=== PATIENT | female | born 1980 | race American Indian/Alaskan Native ===

== ENCOUNTER 2017-10-26 01:23 | Emergency (ER) | payer SELFPAY ==
[2017-10-26 01:36] VITALS: BMI 21.4
[2017-10-26 01:51] LABS: BASO # 0.1 K/uL (0.0-0.2); BASO % 1.2 % (0.0-2.0); EOS # 0.2 K/uL (0.0-0.7); HEMOGLOBIN 12.9 g/dL (12.0-16.0); LYMPH # 5.4 K/uL (1.0-4.3); LYMPH % 56.9 % (20.0-40.0); MEAN CELL VOLUME 95.4 fl (81.0-99.0); MEAN CORPUSCULAR HEMOGLOBIN 31.6 pg (27.0-31.0); MEAN CORPUSCULAR HGB CONC 33.1 g/dL (33.0-37.0); MEAN PLATELET VOLUME 8.4 fl (7.2-11.7); MONO # 0.7 K/uL (0.0-0.8); MONO % 7.7 % (0.0-10.0); NEUT % 32.2 % (50.0-75.0); NRBC % 0.1 % (0.0-0.0); RBC 4.08 Mil/uL (3.80-5.20); WHITE BLOOD COUNT 9.5 K/uL (4.8-10.8)
[2017-10-26 02:03] LABS: BLOOD UREA NITROGEN 15 mg/dl (7-17); GFR AFRICAN-AMERICAN > 60; GFR NON-AFRICAN AMERICAN > 60
--- NOTE | 2017-10-26 02:19 | ED PDOC ---
HPI: Psych/Substance Abuse Time Seen by Provider: 10/26/17 01:25 Chief Complaint (Nursing): Psychiatric Evaluation Chief Complaint (Provider): Psychiatric Evaluation ED Caveat: Uncooperative History Per: Patient History/Exam Limitations: intoxication Onset/Duration Of Symptoms: Days (x 1) Current Symptoms Are (Timing): Still Present Additional Complaint(s): 37 year old female with a history of alcohol abuse was brought in by EMS for evaluation of alcohol intoxication. Patient is well known to the ED. Current history is limited due to alcohol intoxication and patient being uncooperative. Patient states " I just want to go to sleep". PMD: none provided Past Medical History Reviewed: Historical Data, Nursing Documentation, Vital Signs, Unable To Obtain (due to intoxication and uncooperativeness) Vital Signs: Last Vital Signs Temp 98.4 F 10/26/17 01:57 Pulse 102 H 10/26/17 01:57 Resp 18 10/26/17 01:57 BP 120/62 10/26/17 01:57 Pulse Ox 99 10/26/17 01:57 - Family History Family History: States: Unknown Family Hx - Allergies Allergies/Adverse Reactions: Allergies Allergy/AdvReac Type Severity Reaction Status Date / Time No Known Allergies Allergy Verified 10/26/17 01:36 Review of Systems ROS Statement: Except As Marked, All Systems Reviewed And Found Negative Neurological: Positive for: Other (alcohol intoxication) Physical Exam - Reviewed Nursing Documentation Reviewed: Yes Vital Signs Reviewed: Yes - Physical Exam Appears: Positive for: No Acute Distress (appears intoxicated) Head Exam: Positive for: ATRAUMATIC, NORMOCEPHALIC Skin: Positive for: Normal Color, Warm, Dry Eye Exam: Positive for: Normal appearance, PERRL Neck: Positive for: Normal, Painless ROM, Supple Cardiovascular/Chest: Positive for: Regular Rate, Rhythm. Negative for: Murmur Respiratory: Positive for: Normal Breath Sounds. Negative for: Wheezing Gastrointestinal/Abdominal: Positive for: Normal Exam, Soft Back: Positive for: Normal Inspection. Negative for: L CVA Tenderness, R CVA Tenderness, Vertebral Tenderness Extremity: Positive for: Normal ROM. Negative for: Pedal Edema Neurologic/Psych: Positive for: Other (slurred speech) - Laboratory Results Result Diagrams: 10/26/17 01:40 10/26/17 01:40 - ECG O2 Sat by Pulse Oximetry: 99 (RA) Pulse Ox Interpretation: Normal Medical Decision Making Medical Decision Making: Time: 01:36 Impression: alcohol intoxication Initial Plan: --Alcohol Serum --BMP --Urine drug screen --CBC 4AM Resting comfortably, no complaints 7AM Pt. still too intoxicated for discharge, will endorse to day team Dr. Moscoso pending sobriety. Scribe Attestation: Documented by Lida Segal, acting as a scribe for Rico Zavala MD Provider Scribe Attestation: All medical record entries made by the Scribe were at my direction and personally dictated by me. I have reviewed the chart and agree that the record accurately reflects my personal performance of the history, physical exam, medical decision making, and the department course for this patient. I have also personally directed, reviewed, and agree with the discharge instructions and disposition. Disposition - Clinical Impression Clinical Impression: Alcohol intoxication - Patient ED Disposition Is Patient to be Admitted: Transfer of Care - Disposition Disposition: Transfer of Care Disposition Time: 07:00 Condition: STABLE Forms: [employer] ([place]ivehi) Patient Signed Over To: Cathi Moscoso Handoff Comments: pending sobriety
--- NOTE | 2017-10-26 07:08 | ED PDOC ---
- Laboratory Results Result Diagrams: 10/26/17 01:40 10/26/17 01:40 - ECG O2 Sat by Pulse Oximetry: 99 (RA) Medical Decision Making Medical Decision Makin:00 Patient signed out to me by Dr. Zavala pending sobriety. 10:35 Patient's boyfriend in ED, states that patient was drunk last night but is also worried about her left knee because she fell. Patient denies any SI or HI. X- Ray left knee ordered. 11:39 Interpreted x-ray left knee, is negative. Patient is sober, alert, and oriented x3. Advised patient to follow up with PMD in two days, stable for discharge home. Scribe Attestation: Documented by Abigail Mckinnon, acting as a scribe for Cathi Moscoso MD. Provider Scribe Attestation: All medical record entries made by the Scribe were at my direction and personally dictated by me. I have reviewed the chart and agree that the record accurately reflects my personal performance of the history, physical exam, medical decision making, and the department course for this patient. I have also personally directed, reviewed, and agree with the discharge instructions and disposition. Disposition - Clinical Impression Clinical Impression: Alcohol intoxication - POA Present On Arrival: None - Disposition Referrals: [facility] [Outside] [facility] [Outside] Disposition: Routine/Home Disposition Time: 11:25 Condition: IMPROVED Additional Instructions: follow up with your primary doctor in 1-2 days return to the ED with any worsening or concerning symptoms consider alcohol detox Instructions: Alcohol Intoxication (ED) Forms: [employer] (Polish)
[2017-10-26 10:23] VITALS: BP 124/82; PULSE 100; RESP 20; TEMP 98.1
[2017-10-26 10:46] VITALS: O2SAT 99
--- NOTE | 2017-10-26 13:25 | RAD ---
PROCEDURE: Left Knee Radiographs. HISTORY: Posttraumatic pain COMPARISON: None. FINDINGS: BONES: Normal. No fracture. JOINTS: Normal. No osteoarthritis. JOINT EFFUSION: None. OTHER FINDINGS: None. IMPRESSION: Normal radiographs of the left knee. Concordant results with the preliminary interpretation rendered by the emergency department physician procedure.
== END 2017-10-26 13:00 | disposition home or self-care (01) ==
LOC: H.ER 01:23
DX: F10.129 Alcohol abuse with intoxication, unspecified (principal); S89.92XA Unspecified injury of left lower leg, initial encounter; W19.XXXA Unspecified fall, initial encounter; Y92.89 Other specified places as the place of occurrence of the external cause
CPT/HCPCS: 73562; 80048; 85025; 99285; G0480